=== PATIENT | male | born 1975 | race American Indian/Alaskan Native ===

== ENCOUNTER 2016-10-25 19:31 | Emergency (ER) | payer BC, OTHER ==
[2016-10-25 19:50] VITALS: BP 164/77
[2016-10-25] MEDS ORDERED: Acetaminophen/HYDROcodone 325-10 MG Tab PO ONE (20:26)
--- NOTE | 2016-10-25 20:31 | EDM.PDOC ---
{null, ED HPI GENERAL MEDICAL PROBLEM - General Chief Complaint: Lower Extremity Injury/Pain Stated Complaint: POSIBLE KEG FRACTURE [id number] Time Seen by Provider: 10/25/16 20:27 Source of Information: Reports: Patient History Limitations: Reports: No Limitations - History of Present Illness INITIAL COMMENTS - FREE TEXT/NARRATIVE: twisted SQUAD BOSS. Left Ankle Pain Score (Numeric/FACES): 8 - Related Data Allergies Allergy/AdvReac Type Severity Reaction Status Date / Time latex Allergy Rash Verified 01/03/16 12:40 Penicillins Allergy Swollen Verified 01/03/16 12:40 Tongue venlafaxine HCl Allergy Rash Verified 01/03/16 12:40 [From Effexor] Home Meds: Home Meds Enalapril Maleate [Vasotec] 5 mg PO DAILY 09/11/13 [History] Famotidine [Pepcid] 20 mg PO BID 09/11/13 [History] Metoprolol Tartrate 50 mg PO DAILY 09/11/13 [History] Simvastatin [Simvastatin] 20 mg PO DAILY 01/03/16 [History] Albuterol [IJD: Ventolin HFA] 2 puff .ROUTE ASDIRECTED PRN 10/25/16 [History] Cyanocobalamin (Vitamin B12) [Vitamin B12] 1 ml IM ASDIRECTED 10/25/16 [History] Past Medical History HEENT History: Reports: Other (See Below) Other HEENT History: myofascial pain Cardiovascular History: Reports: High Cholesterol, Hypertension Respiratory History: Reports: Pneumonia, Recurrent, Other (See Below) Other Respiratory History: bronchogenic cyst, medistinal mass, lung mass Gastrointestinal History: Reports: GERD, Other (See Below) Other Gastrointestinal History: fatty liver Genitourinary History: Reports: Other (See Below) Other Genitourinary History: ureterolithiasis Musculoskeletal History: Reports: Back Pain, Chronic, Neck Pain, Chronic, Other (See Below) Other Musculoskeletal History: coccyx fracture, wrist fracture, left hand pain, left arm parasthesia, left ankle pain, DDD Neurological History: Reports: Neuropathy, Peripheral, Other (See Below) Other Neuro History: left sided weakness, LOC Endocrine/Metabolic History: Reports: Obesity/BMI 30+ - Past Surgical History Respiratory Surgical History: Reports: Other (See Below) Social & Family History - Tobacco Use Smoking Status *Q: Never Smoker Second Hand Smoke Exposure: Yes - Alcohol Use Days Per Week of Alcohol Use: 0 - Recreational Drug Use Recreational Drug Use: No Review of Systems - Review of Systems Review Of Systems: ROS reveals no pertinent complaints other than HPI. Trauma Exam - Physical Exam Exam: See Below Exam Limited By: No Limitations General Appearance: Reports: Alert, WD/WN, Mild Distress, Other (pain) Head: Reports: Atraumatic Ears: Reports: Hearing Grossly Normal Throat/Mouth: Reports: Normal Voice, No Airway Compromise Neck: Reports: Non-Tender, Full Range of Motion Respiratory Exam: Reports: No Respiratory Distress Cardiovascular: Reports: Regular Rate, Rhythm GI/Abdominal: Reports: Soft, Non-Tender Extremities: Pain with Movement, Tenderness, Other (swollen lateral>, NV wnl, gait limited to pain) Neurologic: Reports: No Motor/Sensory Deficits, Alert, Normal Mood/Affect, Oriented x 3 Skin: Reports: Normal Color, Warm/Dry Course - Vital Signs Last Recorded V/S: Last Vital Signs Temp 37.1 C 10/25/16 19:33 Pulse 76 10/25/16 19:33 Resp 16 10/25/16 19:33 BP 164/77 H 10/25/16 19:33 Pulse Ox 97 10/25/16 19:33 - Orders/Labs/Meds Meds: Medications Discontinued Medications Generic Name Dose Route Start Last Admin Trade Name Esequielq PRN Reason Stop Dose Admin Hydrocodone Bitart/Acetaminophen 1 tab 10/25/16 20:26 [place] 325-10 Mg PO 10/25/16 20:27 ONETIME ONE - Re-Assessments/Exams Free Text/Narrative Re-Assessment/Exam: 10/25/16 20:28 negative x-ray discussed with Pt. Departure - Departure Time of Disposition: 20:29 Disposition: Home, Self-Care 01 Condition: good Clinical Impression: Ankle sprain Qualifiers: Encounter type: initial encounter Involved ligament of ankle: tibiofibular ligament Laterality: left Qualified Code(s): S93.432A - Sprain of tibiofibular ligament of left ankle, initial encounter - Discharge Information Instructions: Ankle Sprain, [id number] Forms: ED Department Discharge Additional Instructions: 1) elevate leg as much as possible next 48 hours 2) wear ANDREY and use crutches 3) follow up at clinic or recheck as needed rx given: vicodin 5/325mg bid prn x 12 }
== END 2016-10-25 20:41 | disposition home or self-care (01) ==
LOC: DL.ED 19:31
DX: S93.432A Sprain of tibiofibular ligament of left ankle, initial encounter (principal); I10 Essential (primary) hypertension; Z87.01 Personal history of pneumonia (recurrent); K21.9 Gastro-esophageal reflux disease without esophagitis; E66.9 Obesity, unspecified; Z79.899 Other long term (current) drug therapy; Z88.0 Allergy status to penicillin; Z88.8 Allergy status to other drugs, medicaments and biological substances; Z91.040 Latex allergy status; X50.1XXA Overexertion from prolonged static or awkward postures, initial encounter
CPT/HCPCS: 73610; 99283; A9270

== ENCOUNTER 2017-04-30 19:59 | Emergency (ER) | payer BC, OTHER ==
[2017-04-30] MEDS ORDERED: Clindamycin HCl 150 MG Cap PO ONE (21:15)
[2017-04-30] MEDS ORDERED: Acetaminophen/HYDROcodone 325-10 MG Tab PO ONE (21:15)
--- NOTE | 2017-04-30 21:21 | EDM.PDOC ---
ED HPI GENERAL MEDICAL PROBLEM - General Chief Complaint: ENT Problem Stated Complaint: BAD PAIN IN NOSE [id number] Time Seen by Provider: 04/30/17 21:16 Source of Information: Reports: Patient History Limitations: Reports: No Limitations - History of Present Illness INITIAL COMMENTS - FREE TEXT/NARRATIVE: developed sore in nose and left cheek now swollen painful. Left Nare Pain Score (Numeric/FACES): 9 - Related Data Allergies Allergy/AdvReac Type Severity Reaction Status Date / Time latex Allergy Rash Verified 04/30/17 20:06 Penicillins Allergy Swollen Verified 04/30/17 20:06 Tongue venlafaxine HCl Allergy Rash Verified 04/30/17 20:06 [From Effexor] Home Meds: Home Meds Enalapril Maleate [Vasotec] 5 mg PO BID 09/11/13 [History] Famotidine [Pepcid] 20 mg PO BID 09/11/13 [History] Metoprolol Tartrate 50 mg PO BID 09/11/13 [History] Simvastatin [Simvastatin] 20 mg PO DAILY 01/03/16 [History] Albuterol [IJD: Ventolin HFA] 2 puff .ROUTE ASDIRECTED PRN 10/25/16 [History] Cyanocobalamin (Vitamin B12) [Vitamin B12] 1 ml IM ASDIRECTED 10/25/16 [History] metFORMIN HCl [Metformin HCl] 1 tab PO BID 04/30/17 [History] Past Medical History HEENT History: Reports: Other (See Below) Other HEENT History: myofascial pain Cardiovascular History: Reports: High Cholesterol, Hypertension Respiratory History: Reports: Pneumonia, Recurrent, Other (See Below) Other Respiratory History: bronchogenic cyst, medistinal mass, lung mass Gastrointestinal History: Reports: GERD, Other (See Below) Other Gastrointestinal History: fatty liver Genitourinary History: Reports: Other (See Below) Other Genitourinary History: ureterolithiasis Musculoskeletal History: Reports: Back Pain, Chronic, Neck Pain, Chronic, Other (See Below) Other Musculoskeletal History: coccyx fracture, wrist fracture, left hand pain, left arm parasthesia, left ankle pain, DDD Neurological History: Reports: Neuropathy, Peripheral, Other (See Below) Other Neuro History: left sided weakness, LOC Endocrine/Metabolic History: Reports: Diabetes, Type II, Obesity/BMI 30+ Hematologic History: Reports: B12 Deficiency Dermatologic History: Reports: Psoriasis - Infectious Disease History Infectious Disease History: Reports: Chicken Pox - Past Surgical History Respiratory Surgical History: Reports: Other (See Below) Social & Family History - Family History Family Medical History: Noncontributory - Tobacco Use Smoking Status *Q: Never Smoker Second Hand Smoke Exposure: No - Caffeine Use Caffeine Use: Reports: Soda - Alcohol Use Days Per Week of Alcohol Use: 0 - Recreational Drug Use Recreational Drug Use: No ED ROS ENT - Review of Systems Review Of Systems: ROS reveals no pertinent complaints other than HPI. ED EXAM, ENT - Physical Exam Exam: See Below Exam Limited By: No Limitations General Appearance: Alert, WD/WN, Mild Distress, Moderate Distress, Other (pain) Ears: Hearing Grossly Normal Nose: Nasal Tenderness, Other (left nostril abscess ) Mouth/Throat: Normal Inspection Head: Atraumatic, Other (left cheek cellulitis) Neck: Non-Tender, Full Range of Motion Respiratory/Chest: No Respiratory Distress Cardiovascular: Regular Rate, Rhythm GI/Abdominal: Soft, Non-Tender Neurological: Alert, Oriented, Normal Cognition, Normal Gait, No Motor/Sensory Deficits Psychiatric: Tearful Skin: Warm, Dry, Normal Color Lymphatic: No Adenopathy Course - Vital Signs Last Recorded V/S: Last Vital Signs Temp 36.9 C 04/30/17 20:14 Pulse 82 04/30/17 20:14 Resp 18 04/30/17 20:14 BP 171/91 H 04/30/17 20:14 Pulse Ox 98 04/30/17 20:14 - Orders/Labs/Meds Orders: Active Orders 24 hr Category Date Time Status Acetaminophen/HYDROcodone [[place] 325-10 MG] Med 04/30/17 21:15 Once 1 tab PO ONETIME ONE Clindamycin HCl [Cleocin] Med 04/30/17 21:15 Once 300 mg PO ONETIME ONE Departure - Departure Time of Disposition: 21:18 Disposition: Home, Self-Care 01 Condition: Good Clinical Impression: Facial cellulitis, Nostril infection - Discharge Information Instructions: Cellulitis, Adult, [id number] Additional Instructions: 1) avoid touching or blowing nose 2) try hot compress to left cheek 3) follow up at clinic or recheck if looks worse rx given; clindamycin 150mg qid x 40 vicodin 5/325mg bid prn x 12 - My Orders Last 24 Hours: My Active Orders 04/30/17 21:15 Acetaminophen/HYDROcodone [[place] 325-10 MG] 1 tab PO ONETIME ONE Clindamycin HCl [Cleocin] 300 mg PO ONETIME ONE - Assessment/Plan Last 24 Hours: My Active Orders 04/30/17 21:15 Acetaminophen/HYDROcodone [[place] 325-10 MG] 1 tab PO ONETIME ONE Clindamycin HCl [Cleocin] 300 mg PO ONETIME ONE
[2017-04-30 21:28] VITALS: BP 176/96
== END 2017-04-30 21:31 | disposition home or self-care (01) ==
LOC: DL.ED 19:59
DX: J34.0 Abscess, furuncle and carbuncle of nose (principal); L03.211 Cellulitis of face; I10 Essential (primary) hypertension; E66.9 Obesity, unspecified; E11.40 Type 2 diabetes mellitus with diabetic neuropathy, unspecified; E78.00 Pure hypercholesterolemia, unspecified; Z79.899 Other long term (current) drug therapy; Z91.040 Latex allergy status; Z88.0 Allergy status to penicillin; Z88.8 Allergy status to other drugs, medicaments and biological substances
CPT/HCPCS: 99283; A9270

== ENCOUNTER 2017-07-15 18:23 | Emergency (ER) | payer OTHER ==
[2017-07-15] MEDS ORDERED: Ibuprofen 800 MG Tab PO ONE (19:09)
--- NOTE | 2017-07-15 19:11 | EDM.PDOC ---
ED HPI GENERAL MEDICAL PROBLEM - General Chief Complaint: Respiratory Problem Stated Complaint: [id number] SHAKING CHILLS SHORTNESS OF BREATH DIZZ Time Seen by Provider: 07/15/17 19:02 Source of Information: Reports: Patient, Family, RN, RN Notes Reviewed History Limitations: Reports: No Limitations - History of Present Illness INITIAL COMMENTS - FREE TEXT/NARRATIVE: Pt presents to the ER with c/o a bad cough, lungs and throat burn with cough. He states he also has had fever and chills, headache, congestion, dizziness, chest pains, and SOB. He denies nausea, vomiting, or diarrhea. Pt states he is scheduled for an angiogram on 07/20/17. He states he stopped taking all of his medications on Wednesday for this procedure, and that he can only take ibuprofen. Patient admits to DMII, HTN, High cholesterol. Onset: Gradual Chest Pain Score (Numeric/FACES): 6 - Related Data Allergies Allergy/AdvReac Type Severity Reaction Status Date / Time latex Allergy Rash Verified 07/15/17 18:40 Penicillins Allergy Swollen Verified 07/15/17 18:40 Tongue venlafaxine HCl Allergy Rash Verified 07/15/17 18:40 [From Effexor] Home Meds: Home Meds Enalapril Maleate [Vasotec] 5 mg PO BID 09/11/13 [History] Famotidine [Pepcid] 20 mg PO BID 09/11/13 [History] Metoprolol Tartrate 50 mg PO BID 09/11/13 [History] Simvastatin [Simvastatin] 20 mg PO DAILY 01/03/16 [History] Albuterol [IJD: Ventolin HFA] 2 puff .ROUTE ASDIRECTED PRN 10/25/16 [History] Cyanocobalamin (Vitamin B12) [Vitamin B12] 1 ml IM ASDIRECTED 10/25/16 [History] metFORMIN HCl [Metformin HCl] 1 tab PO BID 04/30/17 [History] Past Medical History HEENT History: Reports: Other (See Below) Other HEENT History: myofascial pain Cardiovascular History: Reports: High Cholesterol, Hypertension Respiratory History: Reports: Pneumonia, Recurrent, Other (See Below) Other Respiratory History: bronchogenic cyst, medistinal mass, lung mass Gastrointestinal History: Reports: GERD, Other (See Below) Other Gastrointestinal History: fatty liver Genitourinary History: Reports: Other (See Below) Other Genitourinary History: ureterolithiasis Musculoskeletal History: Reports: Back Pain, Chronic, Neck Pain, Chronic, Other (See Below) Other Musculoskeletal History: coccyx fracture, wrist fracture, left hand pain, left arm parasthesia, left ankle pain, DDD Neurological History: Reports: Neuropathy, Peripheral, Other (See Below) Other Neuro History: left sided weakness, LOC Psychiatric History: Reports: None Endocrine/Metabolic History: Reports: Diabetes, Type II, Obesity/BMI 30+ Hematologic History: Reports: B12 Deficiency Immunologic History: Reports: None Oncologic (Cancer) History: Reports: None Dermatologic History: Reports: Psoriasis - Infectious Disease History Infectious Disease History: Reports: Chicken Pox - Past Surgical History Head Surgeries/Procedures: Reports: None Respiratory Surgical History: Reports: Other (See Below) Social & Family History - Family History Family Medical History: Noncontributory - Tobacco Use Smoking Status *Q: Never Smoker Second Hand Smoke Exposure: No - Caffeine Use Caffeine Use: Reports: None - Alcohol Use Days Per Week of Alcohol Use: 0 - Recreational Drug Use Recreational Drug Use: No ED ROS GENERAL - Review of Systems Review Of Systems: ROS reveals no pertinent complaints other than HPI. ED EXAM, GENERAL - Physical Exam Exam: See Below Exam Limited By: No Limitations General Appearance: Alert, WD/WN, No Apparent Distress Eye Exam: Bilateral Eye: EOMI, Normal Inspection, PERRL Ears: Normal External Exam, Normal Canal, Hearing Grossly Normal, Normal TMs Nose: Normal Inspection Throat/Mouth: Normal Inspection, Normal Voice, No Airway Compromise, Other ( Erythematous pharnyx, ) Head: Atraumatic, Normocephalic Neck: Normal Inspection, Supple, Non-Tender, Limited Range of Motion, Tender Lateral, Tender Midline Respiratory/Chest: No Respiratory Distress, Lungs Clear, No Accessory Muscle Use , Chest Non-Tender, Decreased Breath Sounds Cardiovascular: Normal Peripheral Pulses, Regular Rate, Rhythm, No Edema, No Gallop, No JVD, No Murmur, No Rub Peripheral Pulses: 2+: Radial (L), Radial (R) GI/Abdominal: Normal Bowel Sounds, Soft, Non-Tender, No Organomegaly, No Distention (Male) Exam: Deferred Rectal (Males) Exam: Deferred Back Exam: Normal Inspection, Full Range of Motion Extremities: Normal Inspection, Normal Range of Motion, Non-Tender, No Pedal Edema, Normal Capillary Refill Neurological: Alert, Oriented, CN II-XII Intact, Normal Cognition, Normal Gait, Normal Reflexes, No Motor/Sensory Deficits Psychiatric: Normal Affect, Normal Mood Skin Exam: Warm, Dry, Intact, Normal Color, No Rash Lymphatic: No Adenopathy Course - Vital Signs Last Recorded V/S: Last Vital Signs Temp 102.2 F H 07/15/17 19:48 Pulse 101 H 07/15/17 19:48 Resp 22 H 07/15/17 19:48 BP 164/79 H 07/15/17 19:48 Pulse Ox 99 07/15/17 19:48 - Orders/Labs/Meds Orders: Active Orders 24 hr Category Date Time Status Peripheral IV Care [RC] . DIRECTED Care 07/15/17 19:12 Active CULTURE BLOOD [] Stat Lab 07/15/17 19:15 Received CULTURE BLOOD [] Stat Lab 07/15/17 19:20 Received CULTURE STREP A CONFIRMATION [] Stat Lab 07/15/17 18:32 Results STREP SCRN A RAPID W CULT CONF [] Stat Lab 07/15/17 18:32 Results Sodium Chloride 0.9% [Saline Flush] Med 07/15/17 19:12 Active 10 ml FLUSH ASDIRECTED PRN Blood Culture x2 Reflex Set [OM.PC] Stat Oth 07/15/17 19:09 Ordered Peripheral IV Insertion Adult [OM.PC] Stat Oth 07/15/17 19:12 Ordered Medication Orders Sodium Chloride (Saline Flush) 10 ml FLUSH ASDIRECTED PRN PRN Reason: Keep Vein Open Last Admin: 07/15/17 19:35 Dose: 10 ml Labs: Laboratory Tests 07/15/17 07/15/17 07/15/17 Range/Units 19:15 19:15 19:15 WBC 9.9 (5.0-10.0) 10^3/uL RBC 4.98 (4.6-6.2) 10^6/uL Hgb 15.5 (14.0-18.0) g/dL Hct 46.5 (40.0-54.0) % MCV 93.4 (80-100) fL MCH 31.1 (27.0-34.0) pg MCHC 33.3 (33.0-35.0) g/dL Plt Count 231 D (150-450) 10^3/uL Neut % (Auto) 84.0 H (42.2-75.2) % Lymph % (Auto) 7.7 L (20.5-50.1) % [place] % (Auto) 6.9 (2-8) % Eos % (Auto) 1.2 (1.0-3.0) % Baso % (Auto) 0.2 (0.0-1.0) % Sodium 137 (135-145) mmol/L Potassium 3.8 (3.6-5.0) mmol/L Chloride 102 (101-111) mmol/L Carbon Dioxide 27.0 (21.0-31.0) mmol/L Anion Gap 11.8 BUN 13 (7-18) mg/dL Creatinine 1.1 (0.6-1.3) mg/dL Est Cr Clr Drug Dosing 97.98 mL/min Estimated GFR (MDRD) > 60 BUN/Creatinine Ratio 11.81 Glucose 128 H (74-105) mg/dL Lactic Acid 1.4 (0.5-2.2) mmol/L Calcium 8.8 (8.4-10.2) mg/dl Total Bilirubin 0.6 (0.2-1.0) mg/dL AST 29 (10-42) IU/L ALT 31 (10-60) IU/L Alkaline Phosphatase 83 (42-121) IU/L Total Protein 8.0 (6.7-8.2) g/dl Albumin 4.1 (3.2-5.5) g/dl Globulin 3.9 Albumin/Globulin Ratio 1.05 Urine Color (YELLOW) Urine Appearance (CLEAR) Urine pH (5.0-9.0) Ur Specific [place] (1.005-1.030) Urine Protein (NEGATIVE) Urine Glucose (UA) (NEGATIVE) Urine Ketones (NEGATIVE) Urine Occult Blood (NEGATIVE) Urine Nitrite (NEGATIVE) Urine Bilirubin (NEGATIVE) Urine Urobilinogen (0.2-1.0) mg/dL Ur Leukocyte Esterase (NEGATIVE) Urine RBC /HPF Urine WBC (0-5/HPF) /HPF Ur Epithelial Cells /HPF Urine Bacteria (0-FEW/HPF) /HPF 07/15/17 Range/Units 19:27 WBC (5.0-10.0) 10^3/uL RBC (4.6-6.2) 10^6/uL Hgb (14.0-18.0) g/dL Hct (40.0-54.0) % MCV (80-100) fL MCH (27.0-34.0) pg MCHC (33.0-35.0) g/dL Plt Count (150-450) 10^3/uL Neut % (Auto) (42.2-75.2) % Lymph % (Auto) (20.5-50.1) % [place] % (Auto) (2-8) % Eos % (Auto) (1.0-3.0) % Baso % (Auto) (0.0-1.0) % Sodium (135-145) mmol/L Potassium (3.6-5.0) mmol/L Chloride (101-111) mmol/L Carbon Dioxide (21.0-31.0) mmol/L Anion Gap BUN (7-18) mg/dL Creatinine (0.6-1.3) mg/dL Est Cr Clr Drug Dosing mL/min Estimated GFR (MDRD) BUN/Creatinine Ratio Glucose (74-105) mg/dL Lactic Acid (0.5-2.2) mmol/L Calcium (8.4-10.2) mg/dl Total Bilirubin (0.2-1.0) mg/dL AST (10-42) IU/L ALT (10-60) IU/L Alkaline Phosphatase (42-121) IU/L Total Protein (6.7-8.2) g/dl Albumin (3.2-5.5) g/dl Globulin Albumin/Globulin Ratio Urine Color Yellow (YELLOW) Urine Appearance Clear (CLEAR) Urine pH 7.0 (5.0-9.0) Ur Specific [place] 1.020 (1.005-1.030) Urine Protein Negative (NEGATIVE) Urine Glucose (UA) Negative (NEGATIVE) Urine Ketones Negative (NEGATIVE) Urine Occult Blood Trace-lysed H (NEGATIVE) Urine Nitrite Negative (NEGATIVE) Urine Bilirubin Negative (NEGATIVE) Urine Urobilinogen 0.2 (0.2-1.0) mg/dL Ur Leukocyte Esterase Negative (NEGATIVE) Urine RBC 0-5 /HPF Urine WBC 0-5 (0-5/HPF) /HPF Ur Epithelial Cells Rare /HPF Urine Bacteria Rare (0-FEW/HPF) /HPF Influenza A & B: Negative Rapid Strep: Negative Meds: Medications Generic Name Dose Route Start Last Admin Trade Name Freq PRN Reason Stop Dose Admin Sodium Chloride 10 ml 07/15/17 19:12 07/15/17 19:35 Saline Flush FLUSH 10 ml ASDIRECTED PRN Administration Keep Vein Open Discontinued Medications Generic Name Dose Route Start Last Admin Trade Name Ines PRN Reason Stop Dose Admin Sodium Chloride 1,000 mls @ 999 mls/hr 07/15/17 19:12 07/15/17 19:35 Normal Saline IV 07/15/17 20:12 999 mls/hr .BOLUS ONE Administration Ibuprofen 800 mg 07/15/17 19:09 07/15/17 19:29 Motrin PO 07/15/17 19:10 800 mg ONETIME ONE Administration - Re-Assessments/Exams Free Text/Narrative Re-Assessment/Exam: 07/15/17 20:59 Discussed with the patient that it is more important that we get him healthy right now, and that if he is not well they more than likely will not do the angiogram as scheduled. He was instructed to drink plenty of water and alternate tylenol and ibuprofen to reduce fever. He was also instructed to take a tepid bath to try to reduce fever. He will follow up with cardiology in the morning. He will return to ER with any further problems. Departure - Departure Time of Disposition: 21:01 Disposition: Home, Self-Care 01 Condition: Fair Clinical Impression: Upper respiratory infection Qualifiers: URI type: unspecified URI Qualified Code(s): J06.9 - Acute upper respiratory infection, unspecified - Discharge Information Instructions: Upper Respiratory Infection, Adult, [id number] Forms: ED Department Discharge Additional Instructions: Drink plenty of water May use Tylenol or ibuprofen as directed for pain/fever Rest Follow up with your primary care facility - My Orders Last 24 Hours: My Active Orders 07/15/17 18:32 CULTURE STREP A CONFIRMATION [RM] Stat STREP SCRN A RAPID W CULT CONF [RM] Stat 07/15/17 19:09 Blood Culture x2 Reflex Set [OM.PC] Stat 07/15/17 19:12 Peripheral IV Care [RC] . DIRECTED Sodium Chloride 0.9% [Saline Flush] 10 ml FLUSH ASDIRECTED PRN Peripheral IV Insertion Adult [OM.PC] Stat 07/15/17 19:15 CULTURE BLOOD [BC] Stat 07/15/17 19:20 CULTURE BLOOD [BC] Stat - Assessment/Plan Last 24 Hours: My Active Orders 07/15/17 18:32 CULTURE STREP A CONFIRMATION [] Stat STREP SCRN A RAPID W CULT CONF [] Stat 07/15/17 19:09 Blood Culture x2 Reflex Set [OM.PC] Stat 07/15/17 19:12 Peripheral IV Care [RC] . DIRECTED Sodium Chloride 0.9% [Saline Flush] 10 ml FLUSH ASDIRECTED PRN Peripheral IV Insertion Adult [OM.PC] Stat 07/15/17 19:15 CULTURE BLOOD [BC] Stat 07/15/17 19:20 CULTURE BLOOD [BC] Stat
[2017-07-15] MEDS ORDERED: Sodium Chloride 0.9% 1,000 ML IV ONE (19:12)
[2017-07-15] MEDS ORDERED: Sodium Chloride 0.9% 10 ML Syringe FLUSH PRN (19:12)
[2017-07-15 19:39] LABS: CHLORIDE,CL 102 mmol/L (101-111); SODIUM,NA 137 mmol/L (135-145)
[2017-07-15 20:56] VITALS: BP 125/66
== END 2017-07-15 20:59 | disposition home or self-care (01) ==
LOC: DL.ED 18:23
DX: J06.9 Acute upper respiratory infection, unspecified (principal); I10 Essential (primary) hypertension; E78.00 Pure hypercholesterolemia, unspecified; K21.9 Gastro-esophageal reflux disease without esophagitis; E11.42 Type 2 diabetes mellitus with diabetic polyneuropathy; Z79.84 Long term (current) use of oral hypoglycemic drugs; Z79.899 Other long term (current) drug therapy; Z88.0 Allergy status to penicillin; Z88.8 Allergy status to other drugs, medicaments and biological substances; Z91.040 Latex allergy status
CPT/HCPCS: 36415; 80053; 81001; 83605; 85025; 87040; 87081; 87430; 87804; 96360; 99283; A9270; J7030; J7050

== ENCOUNTER 2017-10-05 15:42 | Emergency (ER) | payer OTHER ==
[2017-10-05] MEDS ORDERED: Sodium Chloride 0.9% 10 ML Syringe FLUSH PRN (16:14)
[2017-10-05] MEDS ORDERED: Ondansetron 4 MG/2 ML SDV IV ONE (16:15)
[2017-10-05] MEDS ORDERED: HYDROmorphone 0.5 MG/0.5 ML Syringe IVPUSH ONE (16:15)
[2017-10-05 16:51] LABS: CHLORIDE,CL 99 mmol/L (101-111); SODIUM,NA 135 mmol/L (135-145)
[2017-10-05] MEDS ORDERED: Iopamidol 612 MG/ML 100 ML Bottle IVPUSH ONE (17:03)
--- NOTE | 2017-10-05 18:45 | EDM.PDOC ---
Scribed by Michelle Arora 10/05/17 [id number] for Carlo Joe MD ED HPI GENERAL MEDICAL PROBLEM - General Chief Complaint: Abdominal Pain Stated Complaint: [id number] pain in rt abdomen Time Seen by Provider: 10/05/17 16:04 Source of Information: Reports: Patient, RN, RN Notes Reviewed History Limitations: Reports: No Limitations - History of Present Illness INITIAL COMMENTS - FREE TEXT/NARRATIVE: Patient presents with complaint of onset of right flank pain yesterday associated with nausea which lasted a few hours then went away. Today the pain came back and began hurting in the right upper quadrant. Denies fever or chills. The pain today radiates between the right upper quadrant and right flank. Onset Date: 10/04/17 Duration: Getting Worse Location: Reports: Abdomen Quality: Reports: Ache Severity: Severe Improves with: Reports: None Worsens with: Reports: None Associated Symptoms: Reports: No Other Symptoms Right Flank Pain Score (Numeric/FACES): 8 - Related Data Allergies Allergy/AdvReac Type Severity Reaction Status Date / Time latex Allergy Rash Verified 07/15/17 18:40 Penicillins Allergy Swollen Verified 07/15/17 18:40 Tongue venlafaxine HCl Allergy Rash Verified 07/15/17 18:40 [From Effexor] Home Meds: Home Meds Enalapril Maleate [Vasotec] 5 mg PO BID 09/11/13 [History] Famotidine [Pepcid] 20 mg PO BID 09/11/13 [History] Simvastatin 20 mg PO DAILY 01/03/16 [History] Albuterol [IJD: Ventolin HFA] 2 puff .ROUTE ASDIRECTED PRN 10/25/16 [History] Cyanocobalamin (Vitamin B12) [Vitamin B12] 1 ml IM ASDIRECTED 10/25/16 [History] metFORMIN HCl [Metformin HCl] 1 tab PO BID 04/30/17 [History] amLODIPine Besylate [Norvasc] 1 tab PO DAILY 10/05/17 [History] Past Medical History HEENT History: Reports: Other (See Below) Other HEENT History: myofascial pain Cardiovascular History: Reports: High Cholesterol, Hypertension Respiratory History: Reports: Pneumonia, Recurrent, Other (See Below) Other Respiratory History: bronchogenic cyst, medistinal mass, lung mass Gastrointestinal History: Reports: GERD, Other (See Below) Other Gastrointestinal History: fatty liver Genitourinary History: Reports: Other (See Below) Other Genitourinary History: ureterolithiasis Musculoskeletal History: Reports: Back Pain, Chronic, Neck Pain, Chronic, Other (See Below) Other Musculoskeletal History: coccyx fracture, wrist fracture, left hand pain, left arm parasthesia, left ankle pain, DDD Neurological History: Reports: Neuropathy, Peripheral, Other (See Below) Other Neuro History: left sided weakness, LOC Psychiatric History: Reports: None Endocrine/Metabolic History: Reports: Diabetes, Type II, Obesity/BMI 30+ Hematologic History: Reports: B12 Deficiency Immunologic History: Reports: None Oncologic (Cancer) History: Reports: None Dermatologic History: Reports: Psoriasis - Infectious Disease History Infectious Disease History: Reports: Chicken Pox - Past Surgical History Head Surgeries/Procedures: Reports: None Respiratory Surgical History: Reports: Other (See Below) Social & Family History - Family History Family Medical History: Noncontributory - Tobacco Use Smoking Status *Q: Never Smoker Second Hand Smoke Exposure: No - Caffeine Use Caffeine Use: Reports: None - Alcohol Use Days Per Week of Alcohol Use: 0 - Recreational Drug Use Recreational Drug Use: No ED ROS GENERAL - Review of Systems Review Of Systems: ROS reveals no pertinent complaints other than HPI. ED EXAM, GI/ABD - Physical Exam Exam: See Below Exam Limited By: No Limitations General Appearance: Alert, WD/WN, No Apparent Distress, Obese Eyes: Bilateral: Normal Appearance Ears: Normal External Exam, Normal Canal, Hearing Grossly Normal, Normal TMs Nose: Normal Inspection, Normal Mucosa, No Blood Throat/Mouth: Normal Inspection, Normal Lips, Normal Teeth, Normal Gums, Normal Oropharynx, Normal Voice, No Airway Compromise Head: Atraumatic, Normocephalic Neck: Normal Inspection, Supple, Non-Tender, Full Range of Motion Respiratory/Chest: No Respiratory Distress, Lungs Clear, Normal Breath Sounds, No Accessory Muscle Use, Chest Non-Tender Cardiovascular: Normal Peripheral Pulses, Regular Rate, Rhythm, No Edema, No Gallop, No JVD, No Murmur, No Rub GI/Abdominal Exam: Normal Bowel Sounds, Soft, No Distention, Tender (right upper quadrant without peritoneal signs). No: Guarding, Rigid, Rebound (Male) Exam: Deferred Rectal (Males) Exam: Deferred Back Exam: Normal Inspection, Full Range of Motion, NT Extremities: Normal Inspection, Normal Range of Motion, Non-Tender, Normal Capillary Refill, No Pedal Edema Neurological: Alert, Oriented, CN II-XII Intact, Normal Cognition, Normal Gait, Normal Reflexes, No Motor/Sensory Deficits Psychiatric: Normal Affect, Normal Mood Skin Exam: Warm, Dry, Intact, Normal Color, No Rash Course - Vital Signs Last Recorded V/S: Last Vital Signs Temp 36.8 C 10/05/17 15:53 Pulse 98 10/05/17 15:53 Resp 18 10/05/17 15:53 BP 135/87 10/05/17 15:53 Pulse Ox 96 10/05/17 15:53 - Orders/Labs/Meds Orders: Active Orders 24 hr Category Date Time Status Peripheral IV Care [RC] . DIRECTED Care 10/05/17 16:15 Active Abdomen Pelvis w wo Cont [CT] Stat Exams 10/05/17 17:04 Taken UA W/MICROSCOPIC [URIN] Stat Lab 10/05/17 16:15 Ordered Sodium Chloride 0.9% [Saline Flush] Med 10/05/17 16:14 Active 10 ml FLUSH ASDIRECTED PRN Peripheral IV Insertion Adult [OM.PC] Stat Oth 10/05/17 16:14 Ordered Medication Orders Sodium Chloride (Saline Flush) 10 ml FLUSH ASDIRECTED PRN PRN Reason: Keep Vein Open Last Admin: 10/05/17 16:29 Dose: 10 ml Labs: Laboratory Tests 10/05/17 10/05/17 10/05/17 Range/Units 16:15 16:25 16:25 WBC 11.9 H (5.0-10.0) 10^3/uL RBC 5.09 (4.6-6.2) 10^6/uL Hgb 15.9 (14.0-18.0) g/dL Hct 44.9 (40.0-54.0) % MCV 88.2 D (80-100) fL MCH 31.2 (27.0-34.0) pg MCHC 35.4 H (33.0-35.0) g/dL Plt Count 269 (150-450) 10^3/uL Neut % (Auto) 68.2 (42.2-75.2) % Lymph % (Auto) 20.6 (20.5-50.1) % [place] % (Auto) 7.6 (2-8) % Eos % (Auto) 3.1 H (1.0-3.0) % Baso % (Auto) 0.5 (0.0-1.0) % Sodium 135 (135-145) mmol/L Potassium 3.4 L (3.6-5.0) mmol/L Chloride 99 L (101-111) mmol/L Carbon Dioxide 26.0 (21.0-31.0) mmol/L Anion Gap 13.4 BUN 15 (7-18) mg/dL Creatinine 0.9 (0.6-1.3) mg/dL Est Cr Clr Drug Dosing 116.20 mL/min Estimated GFR (MDRD) > 60 BUN/Creatinine Ratio 16.66 Glucose 162 H (74-105) mg/dL Calcium 9.3 (8.4-10.2) mg/dl Total Bilirubin 1.0 (0.2-1.0) mg/dL AST 49 H (10-42) IU/L ALT 43 (10-60) IU/L Alkaline Phosphatase 86 (42-121) IU/L Total Protein 8.0 (6.7-8.2) g/dl Albumin 3.8 (3.2-5.5) g/dl Globulin 4.2 Albumin/Globulin Ratio 0.90 Amylase 91 (28-100) U/L Lipase 25 (22-51) U/L Urine Color Yellow (YELLOW) Urine Appearance Clear (CLEAR) Urine pH 5.0 (5.0-9.0) Ur Specific [place] 1.025 (1.005-1.030) Urine Protein Negative (NEGATIVE) Urine Glucose (UA) Negative (NEGATIVE) Urine Ketones Negative (NEGATIVE) Urine Occult Blood Negative (NEGATIVE) Urine Nitrite Negative (NEGATIVE) Urine Bilirubin Negative (NEGATIVE) Urine Urobilinogen 0.2 (0.2-1.0) mg/dL Ur Leukocyte Esterase Negative (NEGATIVE) Urine RBC 0-5 /HPF Urine WBC 0-5 (0-5/HPF) /HPF Ur Epithelial Cells Rare /HPF Urine Bacteria Rare (0-FEW/HPF) /HPF Urine Mucus Rare /LPF Meds: Medications Generic Name Dose Route Start Last Admin Trade Name Freq PRN Reason Stop Dose Admin Sodium Chloride 10 ml 10/05/17 16:14 10/05/17 16:29 Saline Flush FLUSH 10 ml ASDIRECTED PRN Administration Keep Vein Open Discontinued Medications Generic Name Dose Route Start Last Admin Trade Name Freq PRN Reason Stop Dose Admin Hydromorphone HCl 1 mg 10/05/17 16:15 10/05/17 16:32 Dilaudid IVPUSH 10/05/17 16:16 0.5 mg ONETIME ONE Administration Iopamidol 100 ml 10/05/17 17:03 10/05/17 18:03 Isovue-300 (61%) IVPUSH 10/05/17 17:04 100 ml ONETIME ONE Administration Ondansetron HCl 4 mg 10/05/17 16:15 10/05/17 16:30 Zofran IV 10/05/17 16:16 4 mg ONETIME ONE Administration - Radiology Interpretation Free Text/Narrative:: CT abdomen and pelvis: There is marked diffuse decrease in hepatic parenchymal density,consistent with fatty infiltration. Hepatomegaly. Steatohepatitis should be excluded clinically. Multiple calcified gallstones are present. No CT evidence of cholecystitis. See rad report. Departure - Departure Time of Disposition: 18:39 Disposition: Home, Self-Care 01 Condition: Good Clinical Impression: Biliary colic Gallstone Qualifiers: Cholecystitis presence: without cholecystitis Biliary obstruction: without biliary obstruction Qualified Code(s): K80.20 - Calculus of gallbladder without cholecystitis without obstruction - Discharge Information Instructions: Cholelithiasis, [id number], Biliary Colic, Adult Referrals: Yaritza Garcia MD [Primary Care Provider] - Forms: ED Department Discharge Additional Instructions: RX: Tensed 5mg/325mg. *DO NOT DRIVE WHILE UNDER THE INFLUENCE OF THIS MEDICATION. RX: Zofran 4mg. Low fat diet. Follow up with Dr. Garcia this week and for referral to general surgeon for gallbladder evaluation. - My Orders Last 24 Hours: My Active Orders 10/05/17 16:14 Sodium Chloride 0.9% [Saline Flush] 10 ml FLUSH ASDIRECTED PRN Peripheral IV Insertion Adult [OM.PC] Stat 10/05/17 16:15 Peripheral IV Care [RC] . DIRECTED UA W/MICROSCOPIC [URIN] Stat 10/05/17 17:04 Abdomen Pelvis w wo Cont [CT] Stat - Assessment/Plan Last 24 Hours: My Active Orders 10/05/17 16:14 Sodium Chloride 0.9% [Saline Flush] 10 ml FLUSH ASDIRECTED PRN Peripheral IV Insertion Adult [OM.PC] Stat 10/05/17 16:15 Peripheral IV Care [RC] . DIRECTED UA W/MICROSCOPIC [URIN] Stat 10/05/17 17:04 Abdomen Pelvis w wo Cont [CT] Stat I have read and agree with the documentation that has been completed regarding this visit. By signing this record, I attest that the documentation was completed in my physical presence and is an accurate record of the encounter.
[2017-10-05 19:01] VITALS: BP 138/68
== END 2017-10-05 19:00 | disposition home or self-care (01) ==
LOC: DL.ED 15:42
DX: K80.70 Calculus of gallbladder and bile duct without cholecystitis without obstruction (principal); E78.00 Pure hypercholesterolemia, unspecified; I10 Essential (primary) hypertension; E11.42 Type 2 diabetes mellitus with diabetic polyneuropathy; Z88.0 Allergy status to penicillin; Z91.040 Latex allergy status; Z88.8 Allergy status to other drugs, medicaments and biological substances; Z79.899 Other long term (current) drug therapy; Z79.84 Long term (current) use of oral hypoglycemic drugs
CPT/HCPCS: 36415; 74178; 80053; 81001; 82150; 83690; 85025; 96374; 96375; 99284; J1170; J2405; J7050; Q9967